=== PATIENT | male | born 1985 | race American Indian/Alaskan Native ===

== ENCOUNTER 2017-01-25 18:35 | Emergency (ER) | payer MEDICAID ==
[2017-01-25 18:41] VITALS: RESP 18
[2017-01-25 23:40] VITALS: BP 118/85; PULSE 86; TEMP 97.5
[2017-01-26 00:37] VITALS: O2SAT 98
== END 2017-01-26 00:15 | disposition home or self-care (01) ==
LOC: C.ER 18:35
DX: F16.10 Hallucinogen abuse, uncomplicated (principal)
CPT/HCPCS: 80053; 80320; 80324; 80345; 80346; 80349; 80353; 80358; 80361; 81001; 82948; 83992; 85025; 96372; 99284; J2060; J3486

== ENCOUNTER 2018-09-29 06:44 | Emergency (ER) | payer MEDICAID ==
--- NOTE | 2018-09-29 08:24 | C.PDOC ---
History Of Present Illness 32 y/o male bib[facility]. [facility], pt was combative and told them he has used PCP. In ed, pt reports he was drinking last night, unclear if pcp used recently. pt not answering all questions. denies hi,si and ah. denies any physical complaints. Time Seen by Provider: 09/29/18 07:29 Chief Complaint (Nursing): Substance Abuse History Per: Patient History/Exam Limitations: no limitations Past Medical History Reviewed: Historical Data, Nursing Documentation, Vital Signs Vital Signs: Last Vital Signs Temp 98.6 F 09/29/18 07:04 Pulse 99 H 09/29/18 07:04 Resp 22 09/29/18 07:04 BP 141/88 09/29/18 07:04 Pulse Ox 92 L 09/29/18 07:04 - Medical History PMH: No Chronic Diseases Denies: Chronic Kidney Disease Surgical History: No Surg Hx Family History: States: No Known Family Hx - Social History Hx Alcohol Use: Yes Hx Substance Use: Yes Review Of Systems Constitutional: Negative for: Fever, Chills Gastrointestinal: Negative for: Nausea, Vomiting Psych: Negative for: Suicidal ideation Physical Exam - Physical Exam Appears: No Acute Distress, Other (awake,alert) Skin: Warm, Dry Head: Atraumatic, Normacephalic Eye(s): bilateral: Normal Inspection Nose: Normal Oral Mucosa: Moist Neck: Supple Chest: Symmetrical Cardiovascular: Rhythm Regular Respiratory: No Rales, No Rhonchi, No Wheezing Gastrointestinal/Abdominal: Soft, No Tenderness, No Guarding, No Rebound Neurological/Psych: Oriented x3, Normal Speech ED Course And Treatment O2 Sat by Pulse Oximetry: 92 Pulse Ox Interpretation: Other (Low) Medical Decision Making Medical Decision Making: Plan: --Glucose, POC Updates: 11:44 AM Patient is awake and alert with normal speech. Patient is walking with steady gait. denies any physical or psychiatric complaints. Disposition Counseled Patient/Family Regarding: Diagnosis, Need For Followup - Disposition Referrals: [facility] [Outside] Disposition: HOME/ ROUTINE Disposition Time: 11:47 Condition: IMPROVED Additional Instructions: Follow up in medical clinic. Stop using drugs Instructions: Polysubstance Abuse (DC) Forms: [employer] 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 - Scribe Statement The provider has reviewed the documentation as recorded by the Scribe Katlyn Bello Provider Attestation All medical record entries made by the Latriceibe were at my direction and personally dictated by me. I have reviewed the chart and agree that the record accurately reflects my personal performance of the history, physical exam, medical decision making, and the department course for this patient. I have also personally directed, reviewed, and agree with the discharge instructions and disposition.
[2018-09-29 12:02] VITALS: BP 122/77; PULSE 63; RESP 20; TEMP 98.7
[2018-09-30 10:46] VITALS: O2SAT 92
== END 2018-09-29 12:38 | disposition home or self-care (01) ==
LOC: C.ER 06:44
DX: F19.10 Other psychoactive substance abuse, uncomplicated (principal)